=== PATIENT | male | born 1930 | race Caucasian/White ===

== ENCOUNTER 2019-08-16 07:21 | Emergency (ER) | payer MEDICARE, OTHER ==
[~2019-08-16] VITALS: Ht 175.3 cm; Wt 58.1 kg
[~2019-08-16 07:21] MED LIST: BENZONATATE100 MG PO; CARVEDILOL3.125 MG PO; DOXYCYCLINE HY100 M3 PO; FUROSEMIDE40 MG PO; NAPROXEN500 MG PO; PREDNISONE20 MG PO; SIMVASTATIN20 MG PO; WAL-ITIN10 MG PO
--- NOTE | 2019-08-16 07:56 | Emergency Department Note ---
History of Present Illnes History of Present Illness Chief Complaint: Abdominal Complaints History of Present Illness This is a 89 year old male with a history of hyperlipidemia, CHF, atrial fibrillation, COPD, kidney stones, pacemaker placement and defibrillator placement, who presents with at least a one-month history of intermittent abdominal pain, loss of appetite, nausea, and low back pain. History is obtained primarily from the , as the patient is very hard of hearing and a vague historian. Patient describes the abdominal pain as "crampy," and worse over the last several days. Patient apparently ate a barbecue sandwich 3 days ago, and then had an episode explosive episode of diarrhea. He has not had a bowel movement since. He denies any fever, chills, vomiting, dysuria, frequency, or difficulty urinating. Patient denies any travel or exposure to COVID19 infection. 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 Required: No ( provided majority of history) Onset (how long ago): month(s) (one) Location: abdomen Quality: crampy Radiation: Reports non-radiation Severity: moderate Onset quality: gradual Duration (how long): week(s) (2) Timing of current episode: constant Progression: worsening Chronicity: new Context: Denies recent surgery, Denies trauma/injury Relieving factors: none Exacerbating factors: none Associated symptoms: Reports loss of appetite; Denies confusion, Denies chest pain, Denies cough, Denies fever/chills, Den ies nausea/vomiting, Denies rash, Denies shortness of breath Treatments prior to arrival: none Risk factors: age, multiple comorbidities Past Medical/Family History Physician Review I have reviewed the patient's past medical and family history. Any updates have been documented here. Past Medical History Recent Fever: No Clinical Suspicion of Infectio: No Past Medical History: COPD, CHF, A-Fib Other Medical History: HIGH CHOLESTEROL Other Surgery: NECK INJECTIONS Pacemaker/defibrillator placement Social History Smoking Cessation: Never Smoker Alcohol Use: None Any Illegal Drug Use: No TB Exposure/Symptoms: No Physically hurt or threatened: No Family History Family history of heart diseas: No Other Last Tetanus: UNK Any Pre-Existing Lines (PICC,: No Review of Systems Review of Systems Constitutional: Reports malaise; Denies chills, Denies fever EENTM: Reports no symptoms Cardiovascular: Denies chest pain, Denies palpitations Respiratory: Denies chest congestion, Denies cough Gastrointestinal: Reports abdominal pain, Reports constipation, Reports nausea; Denies vomiting Genitourinary: Reports no symptoms Musculoskeletal: Reports back pain, Reports muscle pain; Denies muscle stiffness, Denies neck pain Integumentary: Reports no symptoms Neurological: Reports no symptoms; Denies headache, Denies weakness Review of other systems: All other systems negative Physical Exam Related Data Allergies: Coded Allergies: Penicillins (Verified Allergy, 01/30/14) Vital signs reviewed: Yes Physical Exam CONSTITUTIONAL Constitutional: Present well-developed, Present well-nourished, Present cachectic HENT HENT: Present normocephalic, Present atraumatic, Present oropharynx clear/moist, Present nose normal HENT L/R: Present left ext ear normal, Present right ext ear normal EYES Eyes: Reports PERRL, Reports conjunctivae normal NECK Neck: Present ROM normal, Present supple; Absent JVD, Absent cervical adenopathy PULMONARY Pulmonary: Present effort normal, Present breath sounds normal CARDIOVASCULAR Cardiovascular: Present regular rhythm, Present heart sounds normal, Present capillary refill normal, Present normal rate GASTROINTESTINAL Abdominal: Present soft, Present bowel sounds normal, Present tender (mild epigastric ttp); Absent distension, Absent guarding, Absent rebound GENITOURINARY Genitourinary: Present exam deferred SKIN Skin: Present warm, Present erythema; Absent rash MUSCULOSKELETAL Musculoskeletal: Present ROM normal NEUROLOGICAL Neurological: Present alert, Present oriented x 3 PSYCHOLOGICAL Psychological: Present mood/affect normal, Present behavior normal Results Laboratory Laboratory CBC - nl except H/H = 11.5/34.5 BMP - nl except for BUN = 39 Hepatic Profile - nl UA - negative, except for positive nitrates Lab results reviewed: Yes Imaging Imaging results reviewed: Yes Impressions Exam Date: 08/16/19 Exam Time: 0858 REPORT STATUS: Signed EXAM: CT Abdomen and Pelvis WITHOUT contrast INDICATION: ^abdominal and low back pain COMPARISON: None. TECHNIQUE: Abdomen and pelvis were scanned utilizing a multidetector helical scanner from the lung base to the pubic symphysis without administration of IV contrast. Absence of intravenous contrast decreases sensitivity for detection of focal lesions and vascular pathology. Coronal and sagittal reformations were obtained. Routine protocol was performed. IV CONTRAST: None. ORAL CONTRAST: Water RADIATION DOSE: Total DLP: 515.4 mGy*cm Estimated effective dose: (DLP x 0.015 x size factor) mSv COMPLICATIONS: None FINDINGS: LINES and TUBES: Partially visualized ICD leads within the right atrial appendage, coronary sinus, and right ventricle. Small hiatal hernia. LOWER THORAX: Trace right pleural effusion and subsegmental atelectasis in the right lower lobe. Calcified granuloma in the posterior right lower lobe. Cardiomegaly. Coronary artery calcifications. HEPATOBILIARY: Few calcified hepatic granulomas. No focal hepatic lesions. No biliary ductal dilation. GALLBLADDER: Multiple small (less than 5 mm) calcified gallstones. No wall thickening. SPLEEN: No splenomegaly. Few calcified splenic granulomas. PANCREAS: No focal masses or ductal dilatation. ADRENALS: No adrenal nodules KIDNEYS/URETERS: No hydronephrosis. No renal masses on limited evaluation. Mild bilateral perinephric fat stranding, right greater than left. Bilateral nonobstructing 2-4 mm calcified renal stones, at least 3 on the right and one on the left. No calcified stones visualized within the ureters. Noted at the distal left ureter cannot be evaluated due to beam hardening artifact from the adjacent left hip prosthesis. No ureteral dilatation. GI TRACT: No abnormal distention, wall thickening, or evidence of bowel obstruction. The rectal knees mildly distended, measuring 3.6 cm in transverse diameter and associated with circumferential wall thickening and filled with soft tissue density which may represent inspissated feces. There are large amount of retained feces throughout the colon with associated mild distention but not obstruction. The appendix is not visualized. PELVIC ORGANS/BLADDER: Suboptimal evaluation of the left side of the urinary bladder due to heart attending artifact from the adjacent left hip prosthesis. No large calcified stones are visualized. The prostate is mildly enlarged measuring 5.5 cm in transverse diameter x 4 cm in AP diameter and results in extrinsic compression of the base of the urinary bladder. No gallbladder wall thickening or signs to suggest outlet obstruction. LYMPH NODES: No lymphadenopathy. VESSELS: Moderate nonobstructing circumferential atherosclerotic calcifications throughout the abdominal aorta and pelvic arteries without aneurysm. PERITONEUM / RETROPERITONEUM: No free air or fluid. BONES: Left hip replacement. Multilevel degenerative changes of the lumbar spine. Moderate wedge compression deformity of L1 and L5 vertebral bodies. Minimal anterolisthesis of L4 over L5. SOFT TISSUES: Unremarkable. IMPRESSION: 1. Bilateral nonobstructing nephrolithiasis. No calcified stones in the proximal and mid ureters. Distal ureters are not well visualized due to artifact from the adjacent left hip prosthesis. 2. Mildly enlarged prostate results in mild extrinsic compression of the urinary bladder. 3. Large amount of retained feces, mainly in the rectum with associated mild rectal distention. Correlate with fecal impaction. If this does not resolve after bowel content evacuation, consider outpatient consultation for direct visualization of the rectum. 4. Cholelithiasis. Signed by: Dr. Vincent Griffiths M.D. on 08/16/2019 9:09 AM Dictated By: VINCENT GRIFFITHS MD 8 Transcribed By: RICK on 08/16/19908 COPY TO: DARIANA BRAY MD~ Diagnostics Tests Diagnostic test(s) reviewed: Yes Assessment & Plan Medical Decision Making MDM You may use to Ducolax suppository1 per rectum today, to try and help promote a bowel movement. Then take as needed. Take the antibiotics, as directed for urinary tract infection. Try and increas e fluid intake. Follow-up with your primary care physician next week, regarding this ER visit. Take all documents with you, including the CT scan results as well as a lab work, to review together. Follow-up with your speech pathology assistant, regarding ongoing abdominal pain and concerns. Return to the emergency room if symptoms worsen. Reassessment Reassessment time: 10:20 Reassessment Patient resting comfortably on stretcher, asleep. He is easily awakened. Assessment & Plan Final Impression: (1) Abdominal pain (2) Degenerative joint disease (DJD) of lumbar spine (3) UTI (urinary tract infection) (4) Constipation (5) BPH (benign prostatic hyperplasia) Depart Disposition: HOME, SELF-jail Meds Active Scripts Famotidine (FAMOTIDINE) 20 Mg Tab, 20 MG PO DAILY for abdominal pain for 30 Days, #30 TAB 0 Refills Prov:DARIANA BRAY MD 08/16/19 Nitrofurantoin Monohyd/M-Cryst (MACROBID 100 MG CAPSULE) 100 Mg Capsule, 100 MG PO BID for URINE INFECTION, #14 TAB 0 Refills Prov:DARIANA BRAY MD 08/16/19 Reported Medications Loratadine (WAL-ITIN) 10 Mg Tablet, 1 TAB PO DAILY 01/30/14 Simvastatin (SIMVASTATIN) 20 Mg Tablet, 20 MG PO DAILY 01/30/14 Naproxen (NAPROXEN) 500 Mg Tablet, 500 MG PO BID 01/30/14 Carvedilol (CARVEDILOL) 3.125 Mg Tablet, 3.125 MG PO BID, #60 TAB 01/30/14 Benzonatate (BENZONATATE) 100 Mg Capsule, 100 MG PO TID, CAP 01/30/14 Furosemide (FUROSEMIDE) 40 Mg Tablet, 40 MG PO Daily, #30 TAB 01/30/14 Doxycycline Hyclate (DOXYCYCLINE HYCLATE) 100 Mg Tablet, 100 MG PO BID 01/30/14 Prednisone (PREDNISONE) 20 Mg Tab, 60 MG PO DAILY, TAB 01/30/14 DARIANA BRAY MD Aug 16, 2019 07:56
--- NOTE | 2019-08-16 09:12 | Diagnostic Imaging Report ---
EXAM: CT Abdomen and Pelvis WITHOUT contrast INDICATION: ^abdominal and low back pain COMPARISON: None. TECHNIQUE: Abdomen and pelvis were scanned utilizing a multidetector helical scanner from the lung base to the pubic symphysis without administration of IV contrast. Absence of intravenous contrast decreases sensitivity for detection of focal lesions and vascular pathology. Coronal and sagittal reformations were obtained. Routine protocol was performed. IV CONTRAST: None. ORAL CONTRAST: Water RADIATION DOSE: Total DLP: 515.4 mGy*cm Estimated effective dose: (DLP x 0.015 x size factor) mSv COMPLICATIONS: None FINDINGS: LINES and TUBES: Partially visualized ICD leads within the right atrial appendage, coronary sinus, and right ventricle. Small hiatal hernia. LOWER THORAX: Trace right pleural effusion and subsegmental atelectasis in the right lower lobe. Calcified granuloma in the posterior right lower lobe. Cardiomegaly. Coronary artery calcifications. HEPATOBILIARY: Few calcified hepatic granulomas. No focal hepatic lesions. No biliary ductal dilation. GALLBLADDER: Multiple small (less than 5 mm) calcified gallstones. No wall thickening. SPLEEN: No splenomegaly. Few calcified splenic granulomas. PANCREAS: No focal masses or ductal dilatation. ADRENALS: No adrenal nodules KIDNEYS/URETERS: No hydronephrosis. No renal masses on limited evaluation. Mild bilateral perinephric fat stranding, right greater than left. Bilateral nonobstructing 2-4 mm calcified renal stones, at least 3 on the right and one on the left. No calcified stones visualized within the ureters. Noted at the distal left ureter cannot be evaluated due to beam hardening artifact from the adjacent left hip prosthesis. No ureteral dilatation. GI TRACT: No abnormal distention, wall thickening, or evidence of bowel obstruction. The rectal knees mildly distended, measuring 3.6 cm in transverse diameter and associated with circumferential wall thickening and filled with soft tissue density which may represent inspissated feces. There are large amount of retained feces throughout the colon with associated mild distention but not obstruction. The appendix is not visualized. PELVIC ORGANS/BLADDER: Suboptimal evaluation of the left side of the urinary bladder due to heart attending artifact from the adjacent left hip prosthesis. No large calcified stones are visualized. The prostate is mildly enlarged measuring 5.5 cm in transverse diameter x 4 cm in AP diameter and results in extrinsic compression of the base of the urinary bladder. No gallbladder wall thickening or signs to suggest outlet obstruction. LYMPH NODES: No lymphadenopathy. VESSELS: Moderate nonobstructing circumferential atherosclerotic calcifications throughout the abdominal aorta and pelvic arteries without aneurysm. PERITONEUM / RETROPERITONEUM: No free air or fluid. BONES: Left hip replacement. Multilevel degenerative changes of the lumbar spine. Moderate wedge compression deformity of L1 and L5 vertebral bodies. Minimal anterolisthesis of L4 over L5. SOFT TISSUES: Unremarkable. IMPRESSION: 1. Bilateral nonobstructing nephrolithiasis. No calcified stones in the proximal and mid ureters. Distal ureters are not well visualized due to artifact from the adjacent left hip prosthesis. 2. Mildly enlarged prostate results in mild extrinsic compression of the urinary bladder. 3. Large amount of retained feces, mainly in the rectum with associated mild rectal distention. Correlate with fecal impaction. If this does not resolve after bowel content evacuation, consider outpatient consultation for direct visualization of the rectum. 4. Cholelithiasis. Signed by: Dr. Ileana Womack M.D. on 08/16/2019 9:09 AM
[2019-08-16] MEDS ORDERED: FAMOTIDINE 20 MG/2 ML VIAL IV STA (09:57)
[2019-08-16] MEDS ORDERED: MACROBID 100 M100 MG PO (10:42)
[2019-08-16] MEDS ORDERED: FAMOTIDINE20 MG PO (10:43)
[2019-08-16] MEDS ORDERED: CEFTRIAXONE SOD 1 GM/NS 50 ML 50 ML IV ONE (10:45)
[2019-08-16 11:19] VITALS: BP 154/74
== END 2019-08-16 11:25 | disposition home or self-care (01) ==
LOC: FSED 08:15
DX: R10.9 Unspecified abdominal pain (principal); N39.0 Urinary tract infection, site not specified; K59.00 Constipation, unspecified; N40.0 Benign prostatic hyperplasia without lower urinary tract symptoms; M47.816 Spondylosis without myelopathy or radiculopathy, lumbar region
CPT/HCPCS: 74176; 80048; 81003; 85025; 85610; 87086; 87186; 93005; 99283